=== PATIENT | male | born 1975 | race Caucasian/White ===

== ENCOUNTER 2017-01-08 13:09 | Outpatient (CLI) | payer OTHER ==
[2017-01-08] MEDS ORDERED: BUFFERED LIDOCAINE 10 ML SYRINGE IU ONE (14:19)
[2017-01-08] MEDS ORDERED: GADOPENTETATE DIMEGLUMINE 5 ML VIAL IVP ONE (14:19)
[2017-01-08] MEDS ORDERED: IOTHALAMATE MEGLUMINE 50 ML VIAL IVP ONE (14:19)
--- NOTE | 2017-01-08 15:45 | MRI Report ---
EXAM: RIGHT SHOULDER MRI ARTHROGRAM WITH CONTRAST EXAM DATE: 01/08/2017 03:05 PM. CLINICAL HISTORY: PAIN IN RIGHT SHOULDER. COMPARISON: None. TECHNIQUE: Multiplanar, multisequence T1-weighted and fluid-sensitive sequences of the shoulder after an arthrographic injection of dilute gadolinium, dictated under a separate exam. Other: None. FINDINGS: Acromioclavicular Region: The acromion is unipartite type II with lateral downsloping contacting but not significantly deforming the rotator cuff in neutral position. The acromioclavicular joint is unre markable. The acromioclavicular, coracoacromial and coracoclavicular ligaments are intact. There is n o contrast or fluid in the subacromial/subdeltoid bursa. Glenohumeral Region: No subluxation. No loose bodies. The articular cartilage is unremarkable. The gl enohumeral ligaments and joint capsule are unremarkable. Bone Marrow: No fracture, marrow edema or bone lesions. Labrum: There is a small type I SLAP tear. Biceps Tendon: The long head of the biceps tendon and biceps chadwick are intact. Musculature/Rotator Cuff: Mild tendinosis of the supraspinatus without surface tear. The subscapulari s, infraspinatus and teres minor tendons are intact. No edema or fatty atrophy. Other: The subcutaneous tissues are unremarkable. IMPRESSION: 1. Mild tendinosis of the supraspinatus without surface tear. 2. A small type I SLAP tear. 3. Lateral downsloping of the acromion contacting but not significantly deforming the rotator cuff in neutral position. [facility]CULOSKE[facility] SECTION Referring Provider Line: [phone] SITE ID: [id number]
--- NOTE | 2017-01-08 16:42 | XRAY Report ---
FLUOROSCOPICALLY-GUIDED RIGHT SHOULDER INJECTION FOR MR ARTHROGRAM: 01/08/2017 CLINICAL INDICATION: Pain. FINDINGS: Following obtaining informed consent, the patient's right shoulder was prepped and draped in the usual sterile fashion. The skin and soft tissues were anesthetized with lidocaine. A spinal needle was inserted into the right glenohumeral joint, and following confirmation of needle positioni ng, a combination of iodinated contrast, dilute gadolinium, and lidocaine was injected intraarticular ly. The patient tolerated the procedure well. No immediate complications. Spot image reveals no ev idence of contrast extravasation. IMPRESSION: SUCCESSFUL RIGHT SHOULDER INJECTION FOR MR ARTHROGRAM. FLUOROSCOPY TIME: 1 minute 7 seconds; 1 spot image obtained. JOB #: [id number] EXT JOB #:[id number]
== END 2017-01-08 13:10 | disposition home or self-care (01) ==
LOC: DI 13:09
PROVIDERS: ATTEND Student in an Organized Health Care Education/Training Program
DX: S43.431A Superior glenoid labrum lesion of right shoulder, initial encounter (principal); M67.813 Other specified disorders of tendon, right shoulder
CPT/HCPCS: 23350; 73222; 77002; Q9961

== ENCOUNTER 2019-03-24 14:28 | Outpatient (CLI) | payer OTHER | END 2019-03-24 14:29 | disposition home or self-care (01) | LOC: SC 14:28 | PROVIDERS: ATTEND Internal Medicine Pulmonary Disease | DX: R06.83 Snoring (principal); G47.8 Other sleep disorders; R41.89 Other symptoms and signs involving cognitive functions and awareness; G47.10 Hypersomnia, unspecified | CPT/HCPCS: 99203; 99212 ==

== ENCOUNTER 2019-04-23 20:34 | Outpatient (CLI) | payer OTHER | END 2019-04-23 20:35 | disposition home or self-care (01) | LOC: SC 20:34 | PROVIDERS: ATTEND Internal Medicine Pulmonary Disease | DX: G47.61 Periodic limb movement disorder (principal) | CPT/HCPCS: 95810 ==

== ENCOUNTER 2019-05-11 15:08 | Outpatient (CLI) | payer OTHER ==
--- NOTE | 2019-05-11 15:47 | CONSULTATION NOTE ---
Information from patient questionnaire entered by Linn Alcantara. I have reviewed and concur with the information entered by Linn Alcantara. This document represents the service I personally performed and the decisions made by me, Kiya Sawyer MD, [facility]. - History of Present Illness Mr. Doherty returned for follow up of the sleep study he had on 04/23/2019. The polysomnography showed that the patient had normal sleep efficiency. The sleep architecture was normal as well. Respiratory monitoring showed no significant sleep disordered breathing (AHI = 3.1) or hypoxia (shari oxygen saturation of 87% and only 0.16% to the total sleep time was spent with oxygen saturation below 90%). The few respiratory events occurred mainly during supine sleep (supine AHI = 4.6; non-supine = 1.82). Snore was light to moderate in intensity. There was mild periodic leg movement of sleep not associated with sleep fragmentation. Cardiac rhythm was normal sinus rhythm without significant arrhythmia. No abnormal behavior (parasomnia) observed during the night. The patient was informed of these findings. I explained to him that the sleep study was did not show significant sleep disordered breathing. The patient is still concerned of the loud snore which is bothersome to his . Initial Higbee Sleepiness Scale score: 12 Current Higbee Sleepiness Scale score: 14 - Allergies/Medications Allergies and home medications reviewed: Yes - Review of Systems Review of systems same as previous: Yes - Impression 1. Primary Snore (ICD-10 R06.83), light to moderate, but no significant sleep disordered breathing. Treatment for snore includes oral appliance therapy and upper airway surgery. Weight loss most likely will help because he did not use to snore when he was 20 lbs [employer]. - Plan 1. Try not to sleep supine. 2. Attempt to lose weight and avoid alcohol consumption near bedtime. 3. Return for follow up on as needed basis.
== END 2019-05-11 15:09 | disposition home or self-care (01) ==
LOC: SC 15:08
PROVIDERS: ATTEND Internal Medicine Pulmonary Disease
DX: R06.83 Snoring (principal)
CPT/HCPCS: 99212; 99213